=== PATIENT | male | born 1970 | race Caucasian/White ===

== ENCOUNTER 2016-06-26 20:13 | Emergency (ER) | payer MEDICARE ==
--- NOTE | ~2016-06-26 | CR107 ---
[facility]. [facility] A Service of [facility] & [facility] RADIOLOGY TEXT RESULTS PATIENT: DEMI HENRIQUEZ LOCATION: SED : 70 UNIT #: [id number] AGE: [address]: Radu Amin MD SEX: M ORDER DR: [id number] [address] [address] [id number] E MR#: [id number] Acc #: [id number] NAME: DEMI HENRIQUEZ : 1970 SEX: M STUDY DATE/TIME: 06/26/2016 19:37 UNIT: SED ROOM: STUDY DESCRIPTION: CR Femur 2 Views Rt Attending Physician: Radu Amin M.D. Ordering Physician: Radu Amin M.D. Primary Care Physician: No Primary Care Physician MEDICAL IMAGING REPORT This report is preliminary unless electronic signature is present. EXAM Right femur. INDICATIONS Right femur pain after injury 24 hours ago. FINDINGS AP and lateral views of the femur show no evidence of fracture, bone destruction, or periosteal elevation. Adjacent soft tissue structures are normal. IMPRESSION Normal femur. Dictated by... Eric Huerta M.D. THIS IS AN ELECTRONICALLY VERIFIED REPORT Eric Huerta M.D. at 06/27/2016 2:00 PM ALESSANDRO/maureen TD: 06/27/2016 09:01 JOB #: [id number] MEDICAL IMAGING REPORT Page 1 of 1
--- NOTE | ~2016-06-26 | CR173 ---
[facility] A Service of [facility] & [facility] RADIOLOGY TEXT RESULTS PATIENT: DEMI HENRIQUEZ LOCATION: SED : [birth year] UNIT #: [id number] AGE: [address]: Radu Amin MD SEX: M ORDER DR: [id number] [place] [id number] E MR#: [id number] Acc #: [id number] NAME: DEMI HENRIQUEZ : 1970 SEX: M STUDY DATE/TIME: 06/26/2016 19:37 UNIT: SED ROOM: STUDY DESCRIPTION: CR Knee 3 Views Rt Attending Physician: Radu Amin M.D. Ordering Physician: Radu Amin M.D. Primary Care Physician: No Primary Care Physician MEDICAL IMAGING REPORT This report is preliminary unless electronic signature is present. EXAM Right knee. INDICATIONS Right knee pain after stepping in a hole 24 hours ago. FINDINGS AP, lateral, and sunrise views of the right knee were obtained. The bones are normal. There is no significant degenerative change. There is prepatellar soft tissue swelling suggesting an effusion in that bursa. IMPRESSION There appears to be fluid filling the prepatellar bursa. There is no fracture or dislocation identified. Actual knee joint effusion is not visualized. Dictated by... Eric Huerta M.D. THIS IS AN ELECTRONICALLY VERIFIED REPORT Eric Huerta M.D. at 06/29/2016 3:39 PM FEL/maureen TD: 06/27/2016 08:58 JOB #: [id number] MEDICAL IMAGING REPORT Page 1 of 1
[~2016-06-26 20:13] MED LIST: ALPRAZOLAM PO; BRILINTA60 MG; HYDROCHLOROTHIA25 MG; LEXAPRO PO; LISINOPRIL20 MG PO; NEURONTIN600 MG PO; NORCO 10/325 TA1 TAB PO; OXYCODONE HCL15 MG PO; PROZAC PO; VOLTAREN25 MG PO; ZANAFLEX4 M1 PO; ZOCOR
== END 2016-06-26 20:22 | disposition home or self-care (01) ==
LOC: SED 20:13
DX: S83.91XA Sprain of unspecified site of right knee, initial encounter (principal); F17.200 Nicotine dependence, unspecified, uncomplicated; I10 Essential (primary) hypertension; I25.2 Old myocardial infarction; Z88.8 Allergy status to other drugs, medicaments and biological substances; Z79.899 Other long term (current) drug therapy; W18.42XA Slipping, tripping and stumbling without falling due to stepping into hole or opening, initial encounter; Y92.009 Unspecified place in unspecified non-institutional (private) residence as the place of occurrence of the external cause
CPT/HCPCS: 29530; 73552; 73562; 99284

== ENCOUNTER → 2016-07-07 | Outpatient (CLI) | payer MEDICARE ==
--- NOTE | ~2016-07-07 | MR104 ---
[facility] A Service [facility] RADIOLOGY TEXT RESULTS PATIENT: DEMI HENRIQUEZ LOCATION: [facility] : 70 UNIT #: [id number] AGE: [address]: Sarita Marks SEX: M ORDER DR: [id number] [address] [address] [id number] O MR#: [id number] Acc #: [id number] NAME: DEMI HENRIQUEZ : 1970 SEX: M STUDY DATE/TIME: 07/07/2016 11:29 UNIT: [facility] ROOM: STUDY DESCRIPTION: MR Knee Wo Contrast Rt Attending Physician: Sarita Marks P.A.-C. Referring Physician: Sarita Marks P.A.-C. Ordering Physician: Sarita Marks P.A.-C. Primary Care Physician: Felicity Richardson A.P.R.N. MRI CENTER REPORT This report is preliminary unless electronic signature is present. EXAM Right knee MRI without contrast. DATE OF EXAM 07/07/2016 HISTORY 46-year-old male with right knee pain, status post fall, 06/24/2016. No prior right knee surgery. COMPARISON Right knee x-rays, 06/26/2016. TECHNIQUE Routine unenhanced multiplanar, multisequence high-field MR imaging of the right knee was performed. FINDINGS There is some minimal degenerative fraying of the free margin of the posterior horn lateral meniscus. No discrete lateral meniscus tear. Medial meniscus appears intact. Cruciate and collateral ligaments are intact. Extensor mechanism is intact. No joint effusion. No popliteal cyst. 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 Femoral trochlea articular cartilage is intact. Medial compartment articular cartilage intact. There is moderate to high-grade chondromalacia along the central weightbearing lateral femoral condyle and lateral tibial plateau as well as posterior weightbearing [facility] A Service [facility] RADIOLOGY TEXT RESULTS PATIENT: DEMI HENRIQUEZ [id number] : [birth year] UNIT #: [id number] AGE: [address]: Sarita Marks SEX: M ORDER DR: lateral tibial plateau. Mild subchondral marrow edema in the lateral femoral condyle and lateral tibial plateau. Remainder of the bone marrow signal is within expected limits. Visualized musculature is unremarkable. There is a large hematoma in the subcutaneous soft tissues along the anterior suprapatellar region. The hematoma measures 15.3 x 2.2 cm in cross section and approximately 8.8 cm in CC dimension. This is associated with mild subcutaneous soft tissue edema. IMPRESSION 1. Prepatellar and suprapatellar subcutaneous soft tissue hematoma measuring 15.3 x 2.2 x 8.8 cm in size. 2. No acute ligamentous injury. 3. Mild degenerative fraying of the free margin posterior horn lateral meniscus. No discrete meniscus tear identified. 4. 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 Dictated by... Bruno Sands M.D. THIS IS AN ELECTRONICALLY VERIFIED REPORT Bruno Sands M.D. at 07/09/2016 9:09 AM ARVIN/aga TD: 07/07/2016 16:29 JOB #: [id number] MRI CENTER REPORT Page 1 of 1
== END | disposition home or self-care (01) ==
LOC: SMRI 11:00
DX: M25.461 Effusion, right knee (principal); S80.01XA Contusion of right knee, initial encounter; M22.41 Chondromalacia patellae, right knee; M23.351 Other meniscus derangements, posterior horn of lateral meniscus, right knee
CPT/HCPCS: 73721

== ENCOUNTER 2016-07-31 14:00 | Inpatient (IN) | payer MEDICARE ==
--- NOTE | ~2016-07-31 | PN ---
Unit #: [id number] #: [id number] Patient: DEMI HENRIQUEZ [id number] [facility] [address] [place] [address] [id number] I MR#: [id number] NAME: DEMI HENRIQUEZ. ROOM: P210 Age: 46 Sex: M Admission Date: 07/31/2016 : 1970 Attending Physician: Juan Pablo Hanks M.D. Admitting Physician: Juan Pablo Hanks M.D. Primary Care Physician: Jhon Mejia PROGRESS NOTES DATE 08/02/2016 This patient was seen and evaluated on August 02, 2016. He is detoxing from alcohol. He denies any current withdrawal symptoms. He has chronic pain issues. He is hopeful for discharge with followup in the intensive outpatient program. He does feel much better at this time. He has no other complaints other than pain. There are no SI or HI. No overt psychotic symptoms. The patient will meet with his psychiatrist tomorrow, Dr. Hanks. Dictated by... Estefania Araujo A.P.R.N. for Juan Pablo Hanks M.D. ANNA/modl TD: 08/04/2016 16:59 JOB #: [id number] MARITA PROGRESS NOTES Page 1 of 1 X Estefania Araujo PROGRESS NOTE
--- NOTE | ~2016-07-31 | DS ---
Unit #: [id number] #: [id number] Patient: DEMI LYNCH [id number] [place] [address] [id number] I MR#: [id number] NAME: DEMI LYNCH. ROOM: [facility] Age: 46 Sex: M Admission Date: 07/31/2016 : 1970 Discharge Date: 08/03/2016 Attending Physician: Juan Pablo Hanks M.D. Primary Care Physician: Felicity Richardson A.P.R.N. DISCHARGE SUMMARY REASON FOR ADMISSION Mr. Lynch is a 46-year-old man who presented to the hospital reporting the need for alcohol detox. He reported that he is living with his son who is from his and says he is "about to snap." He says that he drinks vodka to help with a long-term pain management problem. He was admitted for stabilization. DIAGNOSTIC STUDIES LABORATORY RESULTS: Hospital chart. HOSPITAL COURSE The patient was admitted and placed on the alcohol detox protocol. His home medications for pain and hypertension were continued unchanged. He had an uneventful period of inpatient detox with no seizures, hallucinations, confusion, or disorganization. He was pleasant and cooperative and had no further suicidal thoughts or alcohol detox symptoms on the date of discharge. DISCHARGE DIAGNOSES AXIS I: Alcohol dependence with withdrawal, uncomplicated; history of major depression. AXIS II: No diagnosis. AXIS III: Chronic pain, hypertension, and high cholesterol. AXIS IV: AXIS V: DISCHARGE INSTRUCTIONS Follow up with primary care physician and chemical dependency programing of the patient's choice. DISCHARGE MEDICATIONS None were provided. The patient was continued on all previous medications unchanged. CONDITION AT DISCHARGE Improved. PROGNOSIS Good. DIET AND ACTIVITY Ad delisa. Unit #: [id number] #: [id number] Patient: DEMI LYNCH Dictated by... iDaz ChildersH/debbie TD: 08/03/2016 13:36 JOB #: [id number] DISCHARGE SUMMARY Page 1 of 1 X Juan Pablo Hanks MD X DISCHARGE SUMMARY
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
[2016-08-01 12:18] LABS: BASOPHIL# 0.1 X10e3 (0-0.3); BASOPHIL% 1.1 % (0-2.5); EOSINOPHIL# 0.7 X10e3 (0-0.7); EOSINOPHIL% 7.2 % (0.0-7.0); HEMATOCRIT 46.2 % (38.0-50.0); HEMOGLOBIN 15.4 gm/dL (13.0-16.0); LYMPHOCYTE# 3.2 X10e3 (1.0-3.5); LYMPHOCYTE% 35.2 % (17.0-45.0); MEAN CELL VOLUME 96.7 FL (83-96); MEAN CORPUSCULAR HEMOGLOBIN 32.2 PG (28-34); MEAN CORPUSCULAR HGB CONC 33.3 g/dL (30-36); MEAN PLATELET VOLUME 8.8 FL (6.5-11.5); MONOCYTE# 0.5 X10e3 (0-1.0); NEUTROPHIL# 4.6 X10e3 (1.5-7.1); NEUTROPHIL% 50.5 % (40-75); PLATELET COUNT 190 X10e3 (140-420); RED BLOOD COUNT 4.78 X10e (3.90-5.60); RED CELL DISTRIBUTION WIDTH 13.5 % (11.0-15.5); WHITE BLOOD COUNT 9.2 X10e3 (4.0-10.5)
[2016-08-01 12:28] LABS: ALBUMIN SERUM 3.7 g/dL (3.5-5.0); BILIRUBIN,TOTAL 0.4 mg/dL (0.2-2.0); BUN/CREATININE RATIO 15.45; CALCIUM SERUM 8.8 mg/dL (8.4-10.2); CREATININE SERUM 1.1 mg/dL (0.6-1.4); GLOM FILT RATE Estimated 80.1 mL/min (>60); POTASSIUM 4.6 mmol/L (3.5-5.1); PROTEIN TOTAL SERUM 6.5 g/dL (6.0-8.3)
[2016-08-01 12:30] LABS: DIFF IND NO
== END 2016-08-03 12:06 | disposition home or self-care (01) | DRG 897 ==
LOC: P2S 17:35
PROVIDERS: Psychiatry & Neurology Psychiatry
PROC: HZ2ZZZZ Detoxification Services for Substance Abuse Treatment (ICD-10-PCS; principal; 2016-07-31)
DX: F10.239 Alcohol dependence with withdrawal, unspecified (principal); I10 Essential (primary) hypertension; G89.29 Other chronic pain; E78.00 Pure hypercholesterolemia, unspecified; I25.2 Old myocardial infarction; M54.2 Cervicalgia; M25.559 Pain in unspecified hip; M25.569 Pain in unspecified knee; Z88.1 Allergy status to other antibiotic agents; F17.210 Nicotine dependence, cigarettes, uncomplicated; M25.50 Pain in unspecified joint
CPT/HCPCS: 80053; 85025